=== PATIENT | male | born 1965 | race Caucasian/White ===

== ENCOUNTER 2024-11-13 11:52 | Emergency (ER) | payer OTHER ==
[~2024-11-13] VITALS: Ht 162.6 cm; Wt 77.3 kg
[2024-11-13] MEDS ORDERED: DULO60CA98 PO (12:19)
[2024-11-13] MEDS ORDERED: BUPR1TAB45 SL (12:20)
[2024-11-13] MEDS ORDERED: BUPR1FIL7 SL (12:34)
[2024-11-13 13:51] VITALS: TEMP 98.9
[2024-11-13 14:14] LABS: BASOPHILS % (AUTO) 0.2 % (0.0-2.0); EOSINOPHILS % (AUTO) 0.4 % (1.0-6.0); HEMATOCRIT 35.4 % (41-53); HEMOGLOBIN 11.9 g/dL (13.5-17.5); LYMPHOCYTES # (AUTO) 1.1 K/uL (1.0-4.8); MEAN CORPUSCULAR HEMOGLOBIN 29.1 pg (26.0-34.0); MEAN CORPUSCULAR HGB CONC 33.5 G/dL (31.0-37.0); MEAN CORPUSCULAR VOLUME 87 fL (80-100); MONOCYTES # (AUTO) 0.8 K/uL (0.1-1.0); MONOCYTES % (AUTO) 6.9 % (2.0-9.0); NEUTROPHILS % (AUTO) 83.5 % (40.0-70.0); PLATELET COUNT (AUTO) 284 K/uL (150-450); RED BLOOD CELL COUNT(AUTO) 4.08 MIL/uL (4.50-5.90); RED CELL DISTRIBUTION WIDTH 15.3 % (11.5-14.5)
[2024-11-13 14:16] LABS: ERYTHROCYTE SEDIMENTATION RATE 41 MM/HR (0-20)
[2024-11-13 14:27] LABS: C-REACTIVE PROTEIN QUANT 10.72 mg/dL (0.00-0.30)
[2024-11-13 14:59] LABS: APPEARANCE,URINE CLEAR (CLEAR); BILIRUBIN,URINE NEGATIVE (NEGATIVE); COLOR,URINE YELLOW (YELLOW); GLUCOSE, URINE (UA) NEGATIVE (NEGATIVE); KETONES,URINE NEGATIVE (NEGATIVE); LEUKOCYTE ESTERASE ,URINE NEGATIVE (NEGATIVE); NITRATE,URINE NEGATIVE (NEGATIVE); OCCULT BLOOD,URINE NEGATIVE (NEGATIVE); PROTEIN,URINE TRACE mg/dL (NEGATIVE); SPECIFIC GRAVITIY, URINE 1.023 (1.003-1.030)
[2024-11-13] MEDS: KETOROLAC TROMETHAMINE 60 MG/2 ML VIAL IM ONE (15:05)
[2024-11-13] MEDS: TraMADol HCL 50 MG TABLET PO ONE (15:05)
[2024-11-13] MEDS: MethylPREDNISolone SOD SUCC 125 MG/2 ML VIAL IM ONE (15:06)
[2024-11-13] MEDS: ACETAMINOPHEN 500 MG TABLET PO ONE (15:06)
[2024-11-13 15:07] LABS: ANION GAP 5 mmol/L (8-16); CALCIUM, TOTAL 8.9 mg/dL (8.8-10.5); CARBON DIOXIDE 29 mmol/L (22-29); CHLORIDE 101 mmol/L (98-107); CREATININE 0.75 mg/dL (0.60-1.30); GLOMERULAR FILTR. RATE CALC > 60 mL/min (>60); GLUCOSE,RANDOM 108 mg/dL (70-110); POTASSIUM 3.9 mmol/L (3.5-5.1); SODIUM SERUM 135 mmol/L (136-145); UREA NITROGEN, BLOOD 18 mg/dL (7-18)
[2024-11-13 15:20] LABS: BACTERIA,URINE Rare /HPF (None Seen); RBC,URINE 0-2 /HPF (0-2); SQUAMOUS EPITHELIAL CELL,UR Rare /LPF (None Seen); WBC,URINE 0-2 /HPF (0-5)
[2024-11-13 16:23] VITALS: BP 131/77; PULSE 70; RESP 18; O2SAT 98
== END 2024-11-13 16:50 ==
LOC: EMS 12:35
DX: L40.50 Arthropathic psoriasis, unspecified (principal); M54.50 Low back pain, unspecified; F11.90 Opioid use, unspecified, uncomplicated; I49.9 Cardiac arrhythmia, unspecified; Z88.0 Allergy status to penicillin; Z72.89 Other problems related to lifestyle
CPT/HCPCS: 99285; 71045; 80048; 81001; 83880; 85025; 85651; 86140; 36415; 73521; 93005; 96372; J1885; J2919

== ENCOUNTER → 2025-07-15 | Outpatient (CLI) | payer OTHER ==
[~2025-07-15] MED LIST: ACET-2080 PO; ACET-2247 PO; AMLO-257 PO; BACI28.410 TP; BENZ1LOZ50 PO; BISA-151 PO; CLON0.1T2 PO; CYCL-448 PO; DOCU-385 PO; FAMO20 PO; GABA-1201 PO; MAG30ORA11 PO; MAGN-169 PO; METH4TAB3 PO; TAMS0.4C94 PO; VANC1PIG IVPB
== END | disposition home or self-care (01) ==
LOC: TELEHEALTH 08:20
PROVIDERS: ATTEND Neurological Surgery
DX: M46.21 Osteomyelitis of vertebra, occipito-atlanto-axial region (principal); G06.1 Intraspinal abscess and granuloma; Z98.1 Arthrodesis status